=== PATIENT | male | born 1985 | race African-American/Black ===

== ENCOUNTER 2017-02-25 22:24 | Inpatient (IN) | payer SELFPAY ==
[~2017-02-25] VITALS: Ht 175.3 cm; Wt 95.3 kg
[2017-02-25 22:28] VITALS: BP 136/74
--- NOTE | 2017-02-25 22:40 | NUR ---
AMBULATED TO ER BED 11
--- NOTE | 2017-02-25 22:45 | NUR ---
31 Y/O M W/C/O CHEST/BACK AND L ARM PAINAND N/V SINCE 1999 TONJOSE. PT STATES HAS A HX OF MS ON MARCH 2016, PERICARDIATIS, PTSD, PREDIABETIS, HEART MURMUR, ASTHMA, AND FIBROMYALGIA. VSS, ON BUSINESS SYSTEMS ADVISOR, PT REFUSED TO LEAVE BP CUFF ON. PT EDUCATED ON IMPORTANCE OF LEAVING BP ON BUT REFUSED. ER MADE AWARE. BP 122/66 AT THE MOMENT.
--- NOTE | 2017-02-25 23:00 | NUR ---
Patient being evaluated by physician at bedside.
[2017-02-25] MEDS ORDERED: NITROGLYCERIN 0.4 MG TAB SL ONE (23:10)
[2017-02-25] MEDS ORDERED: ASPIRIN 325 MG TAB PO ONE (23:10)
[2017-02-25 23:53] LABS: BASOPHILS # (AUTO) 0.2 K/uL (0.00-0.22); BASOPHILS % (AUTO) 1.6 % (0.0-2.0); EOSINOPHILS # (AUTO) 0.1 K/uL (0-0.4); EOSINOPHILS % (AUTO) 0.5 % (0.0-4.0); HEMATOCRIT 37.7 % (36-52); HEMOGLOBIN 12.4 g/dL (12.0-18.0); LYMPHOCYTES # (AUTO) 1.6 K/uL (2.0-11.5); LYMPHOCYTES % (AUTO) 14.2 % (20.5-51.1); MEAN CORPUSCULAR HEMOGLOBIN 27 pg (27-31); MEAN CORPUSCULAR HGB CONC 33 g/dL (33-37); MEAN CORPUSCULAR VOLUME 81 fL (80-94); MONOCYTES # (AUTO) 0.9 K/uL (0.8-1.0); MONOCYTES % (AUTO) 7.8 % (1.7-9.3); NEUTROPHILS # (AUTO) 8.6 K/uL (1.8-7.7); NEUTROPHILS % (AUTO) 75.9 % (42.2-75.2); PLATELET COUNT (AUTO) 408 K/uL (140-450); RED BLOOD CELL COUNT(AUTO) 4.66 MIL/uL (4.20-6.10); RED CELL DISTRIBUTION WIDTH 13.4 % (11.6-13.7); WHITE BLOOD COUNT (AUTO) 11.4 K/uL (4.8-10.8)
[2017-02-26 00:04] LABS: ANION GAP 10.3 (8-16); CARBON DIOXIDE 28.9 mmol/L (21-32); POTASSIUM 4.2 mmol/L (3.5-5.1)
--- NOTE | 2017-02-26 00:06 | NUR ---
PT CONTINUES TAKING BP CUFF OFF, AND BEING DISRESPECFUL TO ALL STAFF. ER MD AND CHARGE NURSE NOTIFIED.
[2017-02-26] MEDS ORDERED: MORPHINE SULFATE 4 MG/ML SYR IVP ONE (00:10)
[2017-02-26 00:11] LABS: ALBUMIN 3.6 g/dL (3.4-5.0); TOTAL BILIRUBIN 0.2 mg/dL (0.0-1.0)
[2017-02-26 00:20] LABS: CREATINE KINASE MB 0.7 ng/mL (0-3.6)
[2017-02-26] MEDS ORDERED: ONDANSETRON 4 MG/2 ML VIAL IVP ONE (00:20)
[2017-02-26] MEDS ORDERED: ONDANSETRON 4 MG/2 ML VIAL IVP PRN (00:30)
[2017-02-26] MEDS ORDERED: HYDROcodone/APAP 5/325 MG 1 TAB TAB PO PRN (00:30)
[2017-02-26] MEDS ORDERED: ACETAMINOPHEN 325 MG TAB PO PRN (00:30)
[2017-02-26] MEDS: PANTOPRAZOLE 40 MG TABEC PO SCH ×2 (00:30→09:11)
[2017-02-26] MEDS: NACL 0.9% 1,000 ML IV SCH ×2 (00:30→10:30)
[2017-02-26] MEDS: DOCUSATE 100 MG/10 ML UDC GT SCH ×2 (00:30→09:00)
[2017-02-26] MEDS ORDERED: ASPIRIN 81 MG TAB.CHEW PO ONE (00:45)
[2017-02-26] MEDS ORDERED: NITROGLYCERIN 0.4 MG TAB SL PRN (00:45)
--- NOTE | 2017-02-26 00:49 | NUR ---
Patient will be admitted to care of DR REVELES. Admited to TELEMETRY. Will go to room 119B. Belongings list completed. Report to SOREN LONG.
[2017-02-26 00:56] LABS: PROTHROMBIN TIME 10.9 secs (10.8-13.4)
[2017-02-26 00:58] LABS: APPEARANCE,URINE CLEAR (CLEAR); BILIRUBIN,URINE NEGATIVE (NEGATIVE); BLOOD, URINE NEGATIVE (NEGATIVE); COLOR,URINE YELLOW (YELLOW); LEUKOCYTE ESTERASE ,URINE NEGATIVE (NEGATIVE); NITRITE, URINE NEGATIVE (NEGATIVE); UGLUCOSE NEGATIVE (NEGATIVE)
[2017-02-26 01:01] LABS: CHOL/HDL RATIO 3.3 (1-4.5); MAGNESIUM 1.8 mg/dL (1.8-2.4)
[2017-02-26 01:03] LABS: BARBITURATE, URINE NEG. ng/ml (NEG <=200); BENZODIAZEPINE, URINE NEG. ng/mL (NEG <=200); CANNABINOID, URINE NEG. ng/mL (NEG <=50); COCAINE, URINE NEG. ng/mL (NEG <=300); OPIATE, URINE NEG. ng/mL (NEG <=2000); PHENCYCLIDINE SCREEN,URINE NEG. ng/mL (NEG <=25)
--- NOTE | 2017-02-26 01:06 | NUR ---
PT TAKEN TO FLOOR VIA GURNEY, MONITOR IN BED. STABLE, NO S/S OF DISTRESS NOTED UPON TRANSFER. ACCOMPANIED BY CHARGE NURSE, AND ME PRIMARY NURSE.
[2017-02-26 01:07] LABS: RBC,URINE 0-5 (RARE) /HPF (0-5); WBC,URINE 0-5 (RARE) /HPF (0-5)
--- NOTE | 2017-02-26 01:20 | NUR ---
PT ARRIVED TO UNIT VIA GURNEY FROM ER. PT WAS ABLE TO AMBULATE WITH STEADY GAIT TO BED. PT IS A/OX4, ON ROOM AIR. PT HAS A LEFT HAND 22G IV, SL. SKIN INTACT. SAFETY PRECAUTIONS IN PLACE. UPDATED BOARD. DISCUSSED PLAN OF CARE WITH PT, PT VERBALIZED UNDERSTANDING. VITAL SIGNS WITHIN NORMAL LIMITS. ORIENTED PT TO ROOM, RESTROOM, PHONE, CALL LIGHT AND BOARD. PT IN STABLE CONDITION, NO SIGNS OF DISTRESS NOTED. BED IN LOW POSITION, CALL LIGHT WITHIN REACH. WILL CONTINUE TO MONITOR.
[2017-02-26 01:30] VITALS: BP 147/94
[2017-02-26] MEDS: MORPHINE SULFATE 2 MG/ML SYR IVP PRN ×4 (02:40→18:44)
[2017-02-26 04:00] VITALS: BP 116/76
--- NOTE | 2017-02-26 07:05 | NUR ---
ENDORSED PT TO DAY SHIFT RN FOR CONTINUITY OF CARE. PT IN STABLE CONDITION.
--- NOTE | 2017-02-26 07:30 | NUR ---
RECEIVED PT REPORT AT BEDSIDE FROM NIGHT NURSE. PT IS AAOX4 AND SHOWS NO S/S OF ACUTE DISTRESS ON ROOM AIR. PT SKIN IS INTACT. PT ON TELE MONITOR. IV NOTED ON THE LT HAND WITH IVF'S INFUSING WELL. IV IS PATENT AND INTACT WITH NO SIGNS OF INFILTRATION. PT WAS EXPLAINED POC FOR TODAY AND VERBALIZE UNDERSTANDING. THE BED IS IN LOW POSITION WITH CALL LIGHT WITHIN REACH. FALL PRECAUTIONS IN PLACE, ALL NEED'S MET AT THIS TIME. WILL CONTINUE TO MONITOR.
[2017-02-26 08:00] VITALS: BP 115/64
--- NOTE | 2017-02-26 08:00 | NUR ---
PT STATED CHEST PAIN AND DESCRIBES IT SHARP AND ACHING THAT RADIATES TO LEFT SHOULDER AND NECK. PT STATED DR CHRISTINE IS AWARE OF PAIN AND IS TO PLACE ORDERS. PT HAS PRN PAIN MEDICATION MORPHINE 2 MG IVP AND WILL BE MEDICATED FOR CHEST PAIN 01/16. PT DENIES SOB, IS AAOX4, AND IS NOT GRASPING AT SITE. PT IS ON THE PHONE LAUGHING AND HAS CLEAR SPEECH.
[2017-02-26 08:15] LABS: BASOPHILS # (AUTO) 0.3 K/uL (0.00-0.22); EOSINOPHILS # (AUTO) 0.1 K/uL (0-0.4); EOSINOPHILS % (AUTO) 0.9 % (0.0-4.0); HEMOGLOBIN 12.6 g/dL (12.0-18.0); LYMPHOCYTES # (AUTO) 2.5 K/uL (2.0-11.5); MEAN CORPUSCULAR HEMOGLOBIN 26 pg (27-31); MEAN CORPUSCULAR HGB CONC 32 g/dL (33-37); MEAN CORPUSCULAR VOLUME 81 fL (80-94); MONOCYTES # (AUTO) 0.6 K/uL (0.8-1.0); MONOCYTES % (AUTO) 6.2 % (1.7-9.3); NEUTROPHILS # (AUTO) 5.5 K/uL (1.8-7.7); NEUTROPHILS % (AUTO) 61.9 % (42.2-75.2); PLATELET COUNT (AUTO) 405 K/uL (140-450); RED BLOOD CELL COUNT(AUTO) 4.81 MIL/uL (4.20-6.10); RED CELL DISTRIBUTION WIDTH 13.5 % (11.6-13.7)
[2017-02-26] MEDS ORDERED: INDOMETHACIN 25 MG CAP PO SCH ×2 (09:00→13:00)
[2017-02-26] MEDS: COLCHICINE 0.6 MG TAB PO SCH ×2 (09:08→21:51)
[2017-02-26] MEDS: DIVALPROEX 500 MG TABEC PO SCH ×3 (09:09→18:03)
[2017-02-26] MEDS: GABAPENTIN 300 MG CAP PO SCH ×3 (09:09→18:03)
[2017-02-26] MEDS: LISINOPRIL 10 MG TAB PO SCH (09:10)
[2017-02-26] MEDS: METOPROLOL 25 MG TAB PO SCH ×2 (09:10→21:50)
--- NOTE | 2017-02-26 09:10 | NUR ---
ADMINISTERED SCHEDULED MEDICATIONS. PT SHOWS NO S/S OF ACUTE DISTRESS. PT STATES, "I HAVE CONTINUOUS ACHING, SHARP CHEST PAIN THAT'S 10." PT WAS GIVEN MORPHINE 2 MG IVP. WILL REASSESS FOR PAIN IN 30 MIN.
[2017-02-26] MEDS: METHOCARBAMOL 500 MG TAB PO SCH ×3 (09:14→18:03)
--- NOTE | 2017-02-26 09:40 | NUR ---
PT STATES PAIN IS NOW A 9/10, AND SAYS " I TAKE 15MG OF MORPHINE A DAY AND HAVE A HIGH TOLERANCE. THE PAIN MEDICATION WILL PROBABLY TAKE AWHILE FOR ME TO FEEL IT." WILL NOTIFY DR OF HIGHER DOSE OF PAIN MEDICATION PT HAS AT HOME.
[2017-02-26] MEDS ORDERED: LOPERAMIDE 2 MG CAP PO PRN (10:05)
[2017-02-26] MEDS ORDERED: KETOROLAC 30 MG/ML VIAL IVP PRN (10:05)
--- NOTE | 2017-02-26 10:30 | NUR ---
NOTIFIED DR IRBY OF PT'S MEDICATIONS HE TAKES AT HOME AND IS AWARE MORPHINE 2 MG IVP WAS NOT EFFECTIVE FOR PAIN.
--- NOTE | 2017-02-26 10:50 | NUR ---
PT IS SLEEPING AND SHOWS NO S/S OF ACUTE DISTRESS ON ROOM AIR.
[2017-02-26 12:00] VITALS: BP 134/62
--- NOTE | 2017-02-26 12:10 | NUR ---
PT IS SLEEPING AND SHOWS NO S/S OF ACUTE DISTRESS ON ROOM AIR. THE BED IS IN LOW POSITION WITH CALL LIGHT WITHIN REACH.
--- NOTE | 2017-02-26 13:02 | NUR ---
PATIENT HAS BEEN SCREENED AND CATEGORIZED MODERATE NUTRITION RISK. PATIENT WILL BE SEEN WITHIN 3-5 DAYS OF ADMISSION. 02/28/17-03/02/[address]
--- NOTE | 2017-02-26 13:45 | NUR ---
ADMINISTERED SCHEDULED MEDICATIONS. PT C/O 01/16 CHEST PAIN AND DESCRIBES IT " CONTINUOUS SHARP ACHING PAIN" AND THE RADIATES TO THE NECK AND LEFT SHOULDER AND WAS GIVEN MORPHINE 2 MG IVP. WILL REASSESS FOR PAIN IN 30 MIN. ALL OF PT'S NEEDS MET AT THIS TIME WILL CONTINUE TO MONITOR.
[2017-02-26 16:00] VITALS: BP 120/65
--- NOTE | 2017-02-26 16:30 | NUR ---
PT IS AAOX4 AND SHOWS NO S/S OF ACUTE DISTRESS ON ROOM AIR. ALL OF PT'S NEEDS MET AT THIS TIME. WILL CONTINUE TO MONITOR.
[2017-02-26] MEDS ORDERED: WARFARIN 2 MG TAB PO SCH (18:00)
[2017-02-26] MEDS ORDERED: WARFARIN 5 MG, WARFARIN 3 MG PO SCH ×2 (18:00)
--- NOTE | 2017-02-26 18:15 | NUR ---
ADMINISTERED SCHEDULED MEDICATIONS LATE D/T PT RECEIVING PROCEDURE AT TIME OF MED ADMINISTRATION. ALL OF PT'S NEEDS MET AT THIS TIME. WILL CONTINUE TO MONITOR.
--- NOTE | 2017-02-26 18:47 | NUR ---
ADMINISTERED MORPHINE 2 MG IVP FOR 10/10 CHEST PAIN. WILL REASSESS PAIN IN 30 MIN.
--- NOTE | 2017-02-26 19:30 | NUR ---
GAVE PT REPORT AT BEDSIDE TO NIGHT NURSE. PT ENDORSED IN STABLE CONDITION.
--- NOTE | 2017-02-26 19:35 | NUR ---
RECEIVED PT FROM LARS RN PT IS AAOX4 AMBULATORY IV ON LEFT HAND INFUSING WELL ON TELEMTRY SR DENIES ANY PAIN INITIAL ASSESSMENT DONE
[2017-02-26 20:00] VITALS: BP 119/55
[2017-02-26] MEDS ORDERED: SIMVASTATIN 20 MG TAB PO SCH (21:00)
--- NOTE | 2017-02-26 22:00 | NUR ---
SPONGE BATH GIVEN LINEN CHANGED PT ON TELMETRY SR NOT DISTRESS NOTED
[2017-02-27] VITALS: BP 120/58
[2017-02-27] MEDS: MORPHINE SULFATE 2 MG/ML SYR IVP PRN (00:09)
--- NOTE | 2017-02-27 01:00 | NUR ---
after pain ;medic given pt sleeps quiet not distress noted on telemetry sr
[2017-02-27 04:00] VITALS: BP 99/49
--- NOTE | 2017-02-27 04:00 | NUR ---
PT HAS BEEN SLEEPING WELL DENIES ANY PAIN AT THIS TIME ON TELEMETRY SR.
--- NOTE | 2017-02-27 06:15 | NUR ---
PT REMAIN STABLE DENIES ANY PAIN AT THIS TIME ON TELMETRY SR
[2017-02-27 06:59] LABS: BASOPHILS # (AUTO) 0.2 K/uL (0.00-0.22); BASOPHILS % (AUTO) 3.1 % (0.0-2.0); EOSINOPHILS # (AUTO) 0.1 K/uL (0-0.4); EOSINOPHILS % (AUTO) 2.2 % (0.0-4.0); HEMATOCRIT 37.7 % (36-52); HEMOGLOBIN 12.5 g/dL (12.0-18.0); LYMPHOCYTES # (AUTO) 3.1 K/uL (2.0-11.5); LYMPHOCYTES % (AUTO) 48.3 % (20.5-51.1); MEAN CORPUSCULAR HEMOGLOBIN 27 pg (27-31); MEAN CORPUSCULAR HGB CONC 33 g/dL (33-37); MEAN CORPUSCULAR VOLUME 80 fL (80-94); MONOCYTES # (AUTO) 0.6 K/uL (0.8-1.0); MONOCYTES % (AUTO) 9.7 % (1.7-9.3); NEUTROPHILS # (AUTO) 2.3 K/uL (1.8-7.7); NEUTROPHILS % (AUTO) 36.7 % (42.2-75.2); PLATELET COUNT (AUTO) 377 K/uL (140-450); RED CELL DISTRIBUTION WIDTH 13.2 % (11.6-13.7)
[2017-02-27 07:18] LABS: PROTHROMBIN TIME 11.1 secs (10.8-13.4)
--- NOTE | 2017-02-27 07:20 | NUR ---
RECEIVED REPORT FROM THE [facility] SHIFT NURSE AT BEDSIDE FOR CONTINUITY OF CARE. PT IS AWAKE AND ORIENTED. INTRODUCED MYSELF AND UPDATED THE BOARD. PT IS C/O PAIN AND ROOM IS TOO COLD. TURNED ON THE HEAT. WILL ASSESS V/S AND THEN CHECK WHAT TIME HE LAST RECEIVED PAIN MEDS. IV ON L HAND 22G SL. NO FLUIDS ORDERED AT THIS TIME. WILL BE BACK TO REASSESS.
[2017-02-27 07:23] LABS: WHITE BLOOD COUNT (AUTO) 6.3 K/uL (4.8-10.8)
[2017-02-27 07:34] LABS: ANION GAP 10.8 (8-16); CREATININE 0.8 mg/dL (0.7-1.3); POTASSIUM 3.8 mmol/L (3.5-5.1)
[2017-02-27 07:42] LABS: VALPROIC ACID < 3 ug/ml (50-100)
[2017-02-27 08:00] VITALS: BP 126/76
--- NOTE | 2017-02-27 08:00 | NUR ---
V/S ALL WITHIN NORMAL LIMITS. C/O OF NARAYAN. WILL MEDICATE. OSCAR BLACK. PLAN FOR TODAY: D/C.
[2017-02-27] MEDS: PANTOPRAZOLE 40 MG TABEC PO SCH (08:33)
[2017-02-27] MEDS: METOPROLOL 25 MG TAB PO SCH (08:34)
[2017-02-27] MEDS: DIVALPROEX 500 MG TABEC PO SCH ×2 (08:34→13:14)
[2017-02-27] MEDS: GABAPENTIN 300 MG CAP PO SCH ×2 (08:35→13:15)
[2017-02-27] MEDS: METHOCARBAMOL 500 MG TAB PO SCH ×2 (08:35→13:15)
[2017-02-27] MEDS ORDERED: KETOROLAC 30 MG/ML VIAL IVP PRN (08:35)
[2017-02-27] MEDS: COLCHICINE 0.6 MG TAB PO SCH (08:35)
[2017-02-27] MEDS: LISINOPRIL 10 MG TAB PO SCH (08:36)
[2017-02-27] MEDS ORDERED: LOPERAMIDE 2 MG CAP PO SCH (08:41)
[2017-02-27] MEDS: DOCUSATE 100 MG/10 ML UDC GT SCH (08:51)
--- NOTE | 2017-02-27 08:55 | NUR ---
ADMINISTERED PAIN MED AND MORNING MEDS. PT TOLERATED WELL. WILL CONTINUE TO MONITOR PT.
[2017-02-27] MEDS ORDERED: LACTOBACILLUS RHAMNOSUS GG 1 EACH CAP PO SCH (09:00)
--- NOTE | 2017-02-27 10:36 | NUR ---
PT RESTING COMFORTABLY. ON PHONE. NO SIGNS OF DISTRESS. NO COMPLAINTS AT THIS TIME. WILL CONTINUE TO MONITOR PT.
[2017-02-27 12:00] VITALS: BP 105/62
--- NOTE | 2017-02-27 13:19 | NUR ---
ADMINISTERED SCHEDULED MEDS. PT TOLERATED THEM WELL. DR. CHRISTINE WAS IN AND EXPLAINED D/C. WILL START ON D/C SOON D/C ORDERS ARE IN.
[2017-02-27] MEDS ORDERED: IMO2 PO (13:39)
[2017-02-27] MEDS ORDERED: IND25 PO (13:39)
[2017-02-27] MEDS ORDERED: PRON INH (13:39)
[2017-02-27] MEDS ORDERED: ACET-9525 PO (13:39)
[2017-02-27] MEDS ORDERED: WARF4TAB PO (13:39)
--- NOTE | 2017-02-27 15:07 | NUR ---
GAVE DISCHARGE INSTRUCTIONS TO PT. PT VERBALIZED UNDERSTANDING. PT REQUESTED BUS PASS. GAVE PT 2 PASSES. REMOVED IV, CANNULA INTACT. NO BLEEDING NOTED. REMOVED ID BAND. REMOVED TELE MONITOR. WILL GET DRESSED AND GATHER HIS BELONGINGS. WILL LET US KNOW WHEN HE IS READY TO GO. WILL GET A WHEELCHAIR READY. PT IN STABLE CONDITION.
--- NOTE | 2017-02-27 15:50 | NUR ---
PT WHEELED OUT BY [employer] APPRENTICE. PERSONAL BELONGINGS IN HAND. PT IN STABLE CONDITION.
[2017-02-27] MEDS ORDERED: WARFARIN 5 MG, WARFARIN 3 MG PO SCH ×2 (17:00)
[2017-02-27] MEDS ORDERED: WARFARIN 2 MG TAB PO SCH (17:00)
== END 2017-02-27 15:50 | disposition home or self-care (01) | DRG 311 ==
LOC: MED 22:24 → MTU 02-26 00:30
PROVIDERS: ADMIT Family Medicine Sports Medicine; ATTEND Family Medicine Sports Medicine
DX: I24.9 Acute ischemic heart disease, unspecified (principal); D68.59 Other primary thrombophilia; R73.03 Prediabetes; F43.10 Post-traumatic stress disorder, unspecified; J45.909 Unspecified asthma, uncomplicated; M79.7 Fibromyalgia; R73.9 Hyperglycemia, unspecified; D72.829 Elevated white blood cell count, unspecified; I10 Essential (primary) hypertension; F43.9 Reaction to severe stress, unspecified; E78.5 Hyperlipidemia, unspecified; M06.9 Rheumatoid arthritis, unspecified; E66.9 Obesity, unspecified; Z68.32 Body mass index [BMI] 32.0-32.9, adult; I25.2 Old myocardial infarction; Z82.5 Family history of asthma and other chronic lower respiratory diseases; Z83.3 Family history of diabetes mellitus; Z82.49 Family history of ischemic heart disease and other diseases of the circulatory system
CPT/HCPCS: 36415; 71010; 80048; 80053; 80305; 81001; 82150; 82550; 82553; 82948; 83036; 83690; 83735; 83880; 84100; 84484; 85025; 85610; 85651; 85730; 86140; 87081; 87086; 93005; 96374; 96375; 99285; J1885; J2270; J2405; J7030; Q0092